=== PATIENT | female | born 1945 | race Two or more races ===

== ENCOUNTER 2018-08-17 08:49 | Inpatient (IN) | payer MEDICARE, BC ==
[~2018-08-17] VITALS: Ht 167.6 cm; Wt 59.9 kg
[2018-08-26] MEDS ORDERED: CITALOPRAM HBR20 M1 ORAL (12:03)
[2018-08-26] MEDS ORDERED: ATENOLOL50 MG ORAL (12:03)
[2018-08-26] MEDS ORDERED: MULTIVITAMINS1 EAC2 ORAL (12:03)
[2018-08-26] MEDS ORDERED: CALCIUM500 M3 PO (12:03)
[2018-08-26] MEDS ORDERED: ASPIR 8181 MG ORAL (12:03)
[2018-08-26] MEDS ORDERED: BIOTIN1 M1 PO (12:03)
[2018-08-26] MEDS ORDERED: VITAMIN C500 M7 PO (12:03)
[2018-08-26] MEDS ORDERED: LISINOPRIL10 MG ORAL (12:03)
[2018-08-26] MEDS ORDERED: VITAMIN E400 UNI8 PO (12:03)
[2018-08-26] MEDS ORDERED: COQ-1030 M1 PO (12:03)
[2018-08-26] MEDS ORDERED: FISH OIL CAP1000 MG ORAL (12:03)
[2018-08-26] MEDS ORDERED: VITAMIN D400 INTLU ORAL (12:03)
[2018-08-26] MEDS ORDERED: LEXAPRO10 MG ORAL (12:03)
[2018-08-26] MEDS ORDERED: COSAMIN DS TAB1 EAC1 PO (12:03)
[2018-08-27] VITALS (12 sets, daily range): BP systolic 98–135; BP diastolic 65–87
[2018-08-27] MEDS ORDERED: NeoSporin Gu Irrig 1ml Amp IRRIG ONE ×2 (07:35→12:34)
[2018-08-27] MEDS ORDERED: Bacitracin 50000 Units Vial ONE ×2 (07:35→12:34)
[2018-08-27] MEDS ORDERED: Bupivacaine 0.5% Inj 30 ml vial INJ ONE (07:42)
[2018-08-27] MEDS ORDERED: fentaNYL 100 mcg/2 mL IV ONE ×2 (08:09→09:12)
[2018-08-27] MEDS ORDERED: Midazolam 2mg/2ml Inj ONE (08:09)
[2018-08-27] MEDS ORDERED: Propofol 200mg/20ml IV ONE (09:12)
[2018-08-27] MEDS ORDERED: Sterile Water Irrig 1000ml IRRIG ONE (09:12)
[2018-08-27] MEDS ORDERED: NS Irrig 1000ml ONE (09:12)
[2018-08-27] MEDS ORDERED: LR 1000ml ONE (09:12)
[2018-08-27] MEDS ORDERED: NS Irrig 2000ml IRRIG ONE (09:12)
--- NOTE | 2018-08-27 09:16 | Pre-Procedure Note/Attestation ---
Pre-Procedure Note/Attestation Complete Prior to Procedure Planned Procedure: right Procedure Narrative: Right Total Knee Arthroplasty Indications for Procedure Pre-Operative Diagnosis: End stage osteoarthritis with deformity and contraction of the right knee Attestation I attest that I discussed the nature of the procedure; its benefits; risks and complications; and alternatives (and the risks and benefits of such alternatives ), prior to the procedure, with the patient (or the patient's legal operations representative). I attest that, if there was a reasonable possibility of needing a blood transfusion, the patient (or the patient's legal operations representative) was given the [facility] standardized written summary, pursuant to the [employer] [place] Blood Safety Act ([place] Health and Safety Code # 1645, as amended). I attest that I re-evaluated the patient just prior to the surgery and that there has been no change in the patient's H&P, except as documented below: Tera Wilkins MD Aug 27, 2018 09:16
[2018-08-27] MEDS ORDERED: LR 1000ml 1,000 ML IVLG SCH (10:24)
--- NOTE | 2018-08-27 10:24 | Anethesia Preoperative Eval ---
Anesthesia Pre-op PMH/ROS General Date of Evaluation: Aug 27, 2018 Time of Evaluation: 08:20 Anesthesiologist: Caroline ASA Score: ASA 2 Mallampati Score Class I : Soft palate, uvula, fauces, pillars visible Class II: Soft palate, uvula, fauces visible Class III: Soft palate, base of uvula visible Class IV: Only hard plate visible Mallampati Classification: Class II Surgeon: Franky Diagnosis: R knee DJD Surgical Procedure: R knee TKA Anesthesia History: none Social History: smoking - h/o Family History: no anesthesia problems Allergies: Coded Allergies: CODEINE (Verified Allergy, Severe, 08/26/18) can not move and talk MORPHINE (Verified Allergy, Severe, 08/27/18) HALLUCINATIONS PENICILLINS (Verified Allergy, Severe, 08/26/18) rash Medications: see eMAR Patient NPO?: Yes NPO Date: Aug 26, 2018 NPO Time: 2029 Past Medical History Cardiovascular: Reports: HTN - stable; Denies: CAD, FL, valve dz, arrhythmia, other Pulmonary: Denies: asthma, COPD, DUANE, other Gastrointestinal/Genitourinary: Reports: GERD - mild; Denies: CRI, ESRD, other Neurologic/Psychiatric: Reports: depression/anxiety; Denies: dementia, CVA, TIA, other Endocrine: Denies: DM, hypothyroidism, steroids, other HEENT: Reports: cataract (L), cataract (R) - s/p bilateral Sx; Denies: glaucoma, JAMUL (L), JAMUL (R), other Hematology/Immune: Denies: anemia, DVT, bleeding disorder, other Musculoskeletal/Integumentary: Reports: DJD; Denies: OA, RA, DDD, edema, other PMH Narrative: as above PSxH Narrative: Bilateral cataracts, hysterectomy Anesthesia Pre-op Phys. Exam Physician Exam Last Vital Signs Date Time Temp Pulse Resp B/P (MAP) Pulse Ox O2 Delivery O2 Flow Rate FiO2 08/27/18 08:57 Room Air 08/27/18 08:56 97.2 55 18 126/87 (100) 98 Constitutional: NAD Neurologic: CN 2-12 intact Cardiovascular: RRR, no M/R/G Respiratory: CTA Gastrointestinal: S/NT/ND Airway Exam Mallampati Score: Class II MO: limited Neck: stiff ROM: limited Teeth: intact Dentures: no upper, no lower Anesthesia Pre-op A/P Labs see chart Studies Pre-op Studies: EKG - NSR Risk Assessment & Plan Assessment: ASA 2 Plan: SAB vs GA R femoral nerve block for post operative pain control Status Change Before Surgery: No Pre-Antibiotics Drug: Ancef 2gr Given Within 1 Hr of Incision: Yes Time Given: 09:40 David Velazquez MD Aug 27, 2018 10:24
[2018-08-27] MEDS ORDERED: DiphenhydrAMINE 50mg/ml Inj IVP PRN (10:30)
[2018-08-27] MEDS ORDERED: Midazolam 2mg/2ml Inj IVP PRN (10:30)
[2018-08-27] MEDS ORDERED: fentaNYL 100 mcg/2 mL IV PRN (10:30)
[2018-08-27] MEDS ORDERED: Ketorolac 30mg Inj IV PRN ×2 (10:30→18:30)
[2018-08-27] MEDS ORDERED: ePHEDrine 50mg/ml Inj ONE (11:31)
[2018-08-27] MEDS ORDERED: Sodium Chloride 10ml vial INJ ONE (11:31)
--- NOTE | 2018-08-27 13:52 | Immediate Post-Op Evaluation ---
Immediate Post-Op Evalulation Immediate Post-Op Evalulation Procedure: R total knee arthroplasty Date of Evaluation: Aug 27, 2018 Time of Evaluation: 13:51 IV Fluids: 1800 Blood Products: none Estimated Blood Loss: 200 Urinary Output: 500 Blood Pressure Systolic: 105 Blood Pressure Diastolic: 56 Pulse Rate: 64 Respiratory Rate: 20 O2 Sat by Pulse Oximetry: 99 Temperature (Fahrenheit): 97.6 Pain Score (1-10): 2 Nausea: No Vomiting: No Complications NONE Patient Status: awake, patent, none Hydration Status: adequate David Velazquez MD Aug 27, 2018 13:52
[2018-08-27] MEDS ORDERED: Milk of Magnesia 30ml Ud ORAL PRN (14:00)
--- NOTE | 2018-08-27 14:00 | Operative Note - PDOC ---
Operative Note Operative Note Date of Operation/Procedure: Aug 27, 2018 Chief Complaint: Pain and limited ADLs due to pain and deformity Pre-op Diagnosis: End stage osteoarthritis with deformity and contraction of the right knee Procedure: Right total knee arthroplasty Post-op Diagnosis: same Post-op Diagnosis: same as pre-op Surgeon: Ania Wilkins M.D. Home Hospice Aide: Ambar Lubin M.D. Anesthesiologist: Dr. Gates Anesthesia: regional Specimen: none Complications: none Condition: stable Estimated Blood Loss: minimal Drains: hemovac Tourniquet time: 120 Implant(s) used?: Yes - flores and Nephew - 6 Femur, 3 tibia, 32 patella and 9mm deep dish insert Indications for Procedure end stage right knee OA refractory to conservative tx Description of Procedure see detailed dictation of total knee replacement/arthroplasty Tera Wilkins MD Aug 27, 2018 14:00
[2018-08-27] MEDS ORDERED: Rate Change PCA 1 Each MISC PRN (14:45)
[2018-08-27] MEDS ORDERED: PCA HYDROmorphone 30mg/30ml Syr IV PRN (14:45)
--- NOTE | 2018-08-27 14:46 | Orthopedic Progress Note ---
Orthopedic - Progress Note Subjective Symptoms: c/o post-op knee pain Additional Comments pain controlled with meds and block Objective Last 24 Hour Vital Signs Date Time Temp Pulse Resp B/P (MAP) Pulse Ox O2 Delivery O2 Flow Rate FiO2 08/27/18 14:25 54 15 119/73 98 Nasal Cannula 3 08/27/18 14:10 53 19 113/67 98 Nasal Cannula 3 08/27/18 14:00 55 17 106/67 100 Nasal Cannula 3 08/27/18 13:52 64 20 99 08/27/18 13:48 56 13 108/69 100 Nasal Cannula 3 08/27/18 13:43 53 17 98/67 100 Simple Mask 6 08/27/18 13:38 97.2 56 22 105/65 100 Simple Mask 6 08/27/18 08:57 Room Air 08/27/18 08:56 97.2 55 18 126/87 (100) 98 Drain approx 75cc Wound: clean, dry, intact Drains: hemovac Neuro Status: stable Vascular Status: normal Additional Comments gross motor of right leg intact and parasthesia present second to nerve block and spinal Assessment Post-op Diagnosis same Procedure Performed Right total knee arthroplasty Plan Plan: PT, pain management, continue drain Additional Comments pending ice machine and cpm Tera Wilkins MD Aug 27, 2018 14:46
--- NOTE | 2018-08-27 15:06 | Diagnostic Imaging Report ---
Indication: Pain 2 views of the right knee were obtained. Findings: A cemented total knee as was demonstrated. Soft tissue swelling and air indicative of recent surgery noted. Alignment and position of the prosthetic is unremarkable. There is a drain noted. IMPRESSION: Status post right total knee replacement. No complications identified
[2018-08-27] MEDS ORDERED: PCA Education Pamphlet MISC ONE (16:00)
[2018-08-27] MEDS: HYDROcodone/Acetamin 7.5/325 tab ORAL PRN (16:17)
[2018-08-27] MEDS: D5 1/2NS w/KCl 20mEq 1,000 ML IV SCH (16:17)
[2018-08-27] MEDS: ceFAZolin sod 1 GM in D5W 55 ML IV SCH (18:00)
[2018-08-27] MEDS: Docusate 100mg cap ORAL SCH (18:00)
--- NOTE | 2018-08-27 18:16 | 48 Hour Post Anesthesia Eval ---
Post Anesthesia Evaluation Procedure: R total knee arthroplasty Date of Evaluation: Aug 27, 2018 Time of Evaluation: 18:16 Blood Pressure Systolic: 135 0: 70 Pulse Rate: 65 Respiratory Rate: 14 Temperature (Fahrenheit): 97.8 O2 Sat by Pulse Oximetry: 98 Airway: patent Nausea: No Vomiting: No Pain Intensity: 6 Hydration Status: adequate Cardiopulmonary Status: stable Mental Status/LOC: patient returned to baseline Follow-up Care/Observations: na Post-Anesthesia Complications: none Follow-up care needed: N/A Priscilla Galicia CRNA Aug 27, 2018 18:16
[2018-08-27] MEDS: PCA shift volume MISC SCH (19:00)
[2018-08-27] MEDS ORDERED: oxyCONTIN 20mg tab ORAL SCH (21:00)
[2018-08-28] VITALS (8 sets, daily range): BP systolic 88–115; BP diastolic 57–75
[2018-08-28] MEDS: ceFAZolin sod 1 GM in D5W 55 ML IV SCH (01:36)
[2018-08-28] MEDS: D5 1/2NS w/KCl 20mEq 1,000 ML IV SCH (04:35)
[2018-08-28 06:45] LABS: BASOPHILS % (AUTO) 0.9 % (0.0-2.0); EOSINOPHILS % (AUTO) 1.4 % (0.0-3.0); HEMATOCRIT 28.3 % (37.0-47.0); HEMOGLOBIN 9.5 G/DL (12.0-16.0); LYMPHOCYTES % (AUTO) 13.7 % (20.0-45.0); MEAN CORPUSCULAR VOLUME 98 FL (80-99); MONOCYTES % (AUTO) 11.4 % (1.0-10.0); NEUTROPHILS % (AUTO) 72.6 % (45.0-75.0); PLATELET COUNT 148 K/UL (150-450); RED BLOOD COUNT 2.88 M/UL (4.20-5.40); RED CELL DISTRIBUTION WIDTH 11.8 % (11.6-14.8); WHITE BLOOD COUNT 6.3 K/UL (4.8-10.8)
[2018-08-28 06:52] LABS: ANION GAP 4 mmol/L (5-15); BLOOD UREA NITROGEN 9 mg/dL (7-18); CALCIUM 8.3 MG/DL (8.5-10.1); CARBON DIOXIDE 29 MMOL/L (21-32); CHLORIDE 102 MMOL/L (98-107); CREATININE 0.7 MG/DL (0.55-1.30); POTASSIUM 4.5 MMOL/L (3.5-5.1); SODIUM 135 MMOL/L (136-145)
[2018-08-28] MEDS: PCA shift volume MISC SCH ×2 (07:00→19:21)
[2018-08-28] MEDS ORDERED: Atenolol 25mg tab ORAL SCH (09:00)
[2018-08-28] MEDS: Docusate 100mg cap ORAL SCH ×3 (09:39→18:02)
[2018-08-28] MEDS: celeBREX 200mg Cap **SURGERY PATIENTS ONLY ORAL SCH (09:39)
[2018-08-28] MEDS: Enoxaparin 40mg Inj SUBQ SCH (10:13)
--- NOTE | 2018-08-28 15:20 | Orthopedic Progress Note ---
Orthopedic - Progress Note Subjective Symptoms: c/o post-op knee pain, improved Additional Comments Patient unable to participate in PT due to lightheaded and low BP. Pt had Atenolol this am and dilaudid for pain...hypotension appears multifactorial She denies dizziness, nausea, chest pain, sob, etc Objective Last 24 Hour Vital Signs Date Time Temp Pulse Resp B/P (MAP) Pulse Ox O2 Delivery O2 Flow Rate FiO2 08/28/18 12:00 18 08/28/18 11:00 99.0 78 109/66 (80) 08/28/18 09:40 75 111/71 08/28/18 08:00 18 08/28/18 08:00 98.2 75 18 111/71 (84) 98 08/28/18 05:05 97.9 08/28/18 04:30 97.9 72 17 112/72 (85) 94 08/28/18 04:30 17 08/28/18 00:27 15 08/28/18 00:19 97.9 71 21 115/75 (88) 94 08/27/18 20:32 15 08/27/18 19:54 98.1 66 20 117/77 (90) 100 08/27/18 18:17 65 08/27/18 18:16 85 14 98 08/27/18 16:00 97.8 65 20 135/84 (101) 100 Intake and Output 08/27/18 08/28/18 19:00 07:00 Intake Total 2315 ml 825 ml Output Total 1470 ml 1870 ml Balance 845 ml -1045 ml Intake Oral 240 ml IV Total 2075 ml 825 ml Output Urine Total 750 ml 1550 ml Drainage Total 520 ml 320 ml Estimated Blood Loss 200 ml # Voids 1 Laboratory Tests Test 08/28/18 06:00 White Blood Count 6.3 K/UL (4.8-10.8) Red Blood Count 2.88 M/UL (4.20-5.40) L Hemoglobin 9.5 G/DL (12.0-16.0) L Hematocrit 28.3 % (37.0-47.0) L Mean Corpuscular Volume 98 FL (80-99) Mean Corpuscular Hemoglobin 33.1 PG (27.0-31.0) H Mean Corpuscular Hemoglobin Concent 33.6 G/DL (32.0-36.0) Red Cell Distribution Width 11.8 % (11.6-14.8) Platelet Count 148 K/UL (150-450) L Mean Platelet Volume 6.4 FL (6.5-10.1) L Neutrophils (%) (Auto) 72.6 % (45.0-75.0) Lymphocytes (%) (Auto) 13.7 % (20.0-45.0) L Monocytes (%) (Auto) 11.4 % (1.0-10.0) H Eosinophils (%) (Auto) 1.4 % (0.0-3.0) Basophils (%) (Auto) 0.9 % (0.0-2.0) Prothrombin Time 10.9 SEC (9.30-11.50) Prothromb Time International Ratio 1.0 (0.9-1.1) Sodium Level 135 MMOL/L (136-145) L Potassium Level 4.5 MMOL/L (3.5-5.1) Chloride Level 102 MMOL/L (98-107) Carbon Dioxide Level 29 MMOL/L (21-32) Anion Gap 4 mmol/L (5-15) L Blood Urea Nitrogen 9 mg/dL (7-18) Creatinine 0.7 MG/DL (0.55-1.30) Estimat Glomerular Filtration Rate mL/min (>60) Glucose Level 160 MG/DL (74-106) H Calcium Level 8.3 MG/DL (8.5-10.1) L H and H 9.6 and 28 Wound: clean, dry, intact Drains: hemovac Neuro Status: stable Vascular Status: normal Assessment Post-op Diagnosis same Procedure Performed Right total knee arthroplasty Plan Plan: PT, pain management, continue drain Additional Comments BP monitoring and treatment as needed - will start with fluid bolus, etc Tera Wilkins MD Aug 28, 2018 15:20
[2018-08-28] MEDS: 1/2NS w/KCl 20mEq 1000ml 1,000 ML IV SCH ×2 (16:09→23:06)
[2018-08-28] MEDS: ALPRAZolam 0.25mg tab ORAL PRN (23:41)
[2018-08-29 00:43] VITALS: BP 95/56
[2018-08-29] MEDS: ALPRAZolam 0.25mg tab ORAL PRN (02:12)
[2018-08-29 04:00] VITALS: BP 93/57
[2018-08-29 05:05] LABS: BASOPHILS % (AUTO) 0.9 % (0.0-2.0); EOSINOPHILS % (AUTO) 4.1 % (0.0-3.0); HEMATOCRIT 24.1 % (37.0-47.0); HEMOGLOBIN 8.2 G/DL (12.0-16.0); LYMPHOCYTES % (AUTO) 22.4 % (20.0-45.0); MEAN CORPUSCULAR VOLUME 98 FL (80-99); MONOCYTES % (AUTO) 12.3 % (1.0-10.0); NEUTROPHILS % (AUTO) 60.4 % (45.0-75.0); PLATELET COUNT 121 K/UL (150-450); RED BLOOD COUNT 2.46 M/UL (4.20-5.40); RED CELL DISTRIBUTION WIDTH 11.7 % (11.6-14.8); WHITE BLOOD COUNT 5.1 K/UL (4.8-10.8)
[2018-08-29] MEDS: PCA shift volume MISC SCH (07:10)
[2018-08-29 08:00] VITALS: BP 116/75
[2018-08-29] MEDS: 1/2NS w/KCl 20mEq 1000ml 1,000 ML IV SCH ×2 (08:19→15:06)
[2018-08-29] MEDS: celeBREX 200mg Cap **SURGERY PATIENTS ONLY ORAL SCH (08:20)
[2018-08-29] MEDS: Docusate 100mg cap ORAL SCH ×3 (08:21→18:28)
[2018-08-29] MEDS: Enoxaparin 40mg Inj SUBQ SCH ×2 (09:00→15:08)
[2018-08-29 12:00] VITALS: BP 109/76
[2018-08-29] MEDS ORDERED: Rate Change PCA 1 Each MISC PRN (14:45)
[2018-08-29] MEDS ORDERED: Naloxone 0.4mg/ml Inj IV PRN (14:45)
[2018-08-29] MEDS ORDERED: PCA HYDROmorphone 1mg/ml 30 ML IV PRN (14:45)
[2018-08-29 16:00] VITALS: BP 110/74
--- NOTE | 2018-08-29 17:32 | Orthopedic Progress Note ---
Orthopedic - Progress Note Subjective Symptoms: c/o post-op knee pain, improved Additional Comments Pt still having symptomatic hypotension when trying to stand and ambulate....long discussion with patient and she would like to proceed with transfusion instead of waiting until tomorrow as clinically she will greatly benefit from it. ALL RBA d/w pt and questions answered. Objective Last 24 Hour Vital Signs Date Time Temp Pulse Resp B/P (MAP) Pulse Ox O2 Delivery O2 Flow Rate FiO2 08/29/18 12:00 20 08/29/18 12:00 98.9 77 20 109/76 (87) 100 08/29/18 08:00 98.3 80 20 116/75 (89) 96 08/29/18 08:00 20 08/29/18 04:00 17 08/29/18 04:00 98.9 68 17 93/57 (69) 98 08/29/18 01:59 99.3 08/29/18 00:54 100.9 08/29/18 00:43 100.9 84 17 95/56 (69) 94 08/29/18 00:00 17 08/28/18 23:35 101.0 85 18 102/65 (77) 94 08/28/18 20:00 17 08/28/18 20:00 98.9 74 17 90/58 (69) 94 08/28/18 18:00 74 88/57 (67) Intake and Output 08/28/18 08/29/18 19:00 07:00 Output Total 1520 ml 1880 ml Balance -1520 ml -1880 ml Output Urine Total 1400 ml 1800 ml Drainage Total 120 ml 80 ml Laboratory Tests Test 08/29/18 04:35 White Blood Count 5.1 K/UL (4.8-10.8) Red Blood Count 2.46 M/UL (4.20-5.40) L Hemoglobin 8.2 G/DL (12.0-16.0) L Hematocrit 24.1 % (37.0-47.0) L Mean Corpuscular Volume 98 FL (80-99) Mean Corpuscular Hemoglobin 33.2 PG (27.0-31.0) H Mean Corpuscular Hemoglobin Concent 33.8 G/DL (32.0-36.0) Red Cell Distribution Width 11.7 % (11.6-14.8) Platelet Count 121 K/UL (150-450) L Mean Platelet Volume 6.2 FL (6.5-10.1) L Neutrophils (%) (Auto) 60.4 % (45.0-75.0) Lymphocytes (%) (Auto) 22.4 % (20.0-45.0) Monocytes (%) (Auto) 12.3 % (1.0-10.0) H Eosinophils (%) (Auto) 4.1 % (0.0-3.0) H Basophils (%) (Auto) 0.9 % (0.0-2.0) Prothrombin Time 10.6 SEC (9.30-11.50) Prothromb Time International Ratio 1.0 (0.9-1.1) H&H low and pt symptomatic, thus transfusion recommended Wound: clean, dry, intact Drains: hemovac Neuro Status: normal Vascular Status: normal Assessment Post-op Diagnosis same Procedure Performed Right total knee arthroplasty Plan Plan: PT, pain management, continue drain, other Additional Comments Transfusion tonight and restart PT in am Tera Wilkins MD Aug 29, 2018 17:32
[2018-08-29] MEDS ORDERED: Hydromorphone 0.5mg/0.5ml inj IVP PRN ×2 (17:35→17:36)
[2018-08-29] MEDS ORDERED: PCA shift volume MISC SCH (19:00)
[2018-08-29 20:23] VITALS: BP 137/85
[2018-08-30] VITALS (7 sets, daily range): BP systolic 116–143; BP diastolic 71–89
[2018-08-30] MEDS ORDERED: Acetaminophen 500mg (ES) tab ORAL ONE (01:00)
[2018-08-30 07:36] LABS: BASOPHILS % (AUTO) 0.6 % (0.0-2.0); EOSINOPHILS % (AUTO) 4.7 % (0.0-3.0); HEMATOCRIT 32.3 % (37.0-47.0); HEMOGLOBIN 11.4 G/DL (12.0-16.0); LYMPHOCYTES % (AUTO) 15.1 % (20.0-45.0); MEAN CORPUSCULAR VOLUME 93 FL (80-99); MONOCYTES % (AUTO) 10.9 % (1.0-10.0); NEUTROPHILS % (AUTO) 68.7 % (45.0-75.0); PLATELET COUNT 135 K/UL (150-450); RED BLOOD COUNT 3.46 M/UL (4.20-5.40); RED CELL DISTRIBUTION WIDTH 13.6 % (11.6-14.8); WHITE BLOOD COUNT 5.2 K/UL (4.8-10.8)
[2018-08-30 07:50] LABS: INR 0.9 (0.9-1.1)
[2018-08-30] MEDS: Docusate 100mg cap ORAL SCH ×3 (08:53→17:30)
[2018-08-30] MEDS: celeBREX 200mg Cap **SURGERY PATIENTS ONLY ORAL SCH (08:53)
[2018-08-30] MEDS: 1/2NS w/KCl 20mEq 1000ml 1,000 ML IV SCH ×3 (08:53→16:00)
--- NOTE | 2018-08-30 10:50 | Orthopedic Progress Note ---
Orthopedic - Progress Note Subjective Symptoms: improved Additional Comments Pt significantly improved after transfusion, able to ambulate and no hypotension symptoms, etc. energy level increased and pain controlled Objective Last 24 Hour Vital Signs Date Time Temp Pulse Resp B/P (MAP) Pulse Ox O2 Delivery O2 Flow Rate FiO2 08/30/18 08:00 98.1 81 21 128/81 (97) 97 08/30/18 04:00 98.2 64 18 123/72 (89) 99 08/30/18 01:34 98.7 08/30/18 00:00 98.6 65 18 116/71 (86) 98 08/29/18 21:00 Room Air 08/29/18 20:23 99.0 74 20 137/85 (102) 100 08/29/18 20:18 98.5 08/29/18 16:00 97.5 70 20 110/74 (86) 100 08/29/18 16:00 20 08/29/18 12:00 20 08/29/18 12:00 98.9 77 20 109/76 (87) 100 Intake and Output 08/29/18 08/30/18 19:00 07:00 Intake Total 565 ml 575 ml Output Total 80 ml 850 ml Balance 485 ml -275 ml Intake Oral 440 ml 200 ml IV Total 125 ml 375 ml Output Urine Total 800 ml Drainage Total 80 ml 50 ml # Voids 2 Laboratory Tests Test 08/30/18 06:20 White Blood Count 5.2 K/UL (4.8-10.8) Red Blood Count 3.46 M/UL (4.20-5.40) L Hemoglobin 11.4 G/DL (12.0-16.0) #L Hematocrit 32.3 % (37.0-47.0) #L Mean Corpuscular Volume 93 FL (80-99) Mean Corpuscular Hemoglobin 32.8 PG (27.0-31.0) H Mean Corpuscular Hemoglobin Concent 35.2 G/DL (32.0-36.0) Red Cell Distribution Width 13.6 % (11.6-14.8) Platelet Count 135 K/UL (150-450) L Mean Platelet Volume 6.7 FL (6.5-10.1) Neutrophils (%) (Auto) 68.7 % (45.0-75.0) Lymphocytes (%) (Auto) 15.1 % (20.0-45.0) L Monocytes (%) (Auto) 10.9 % (1.0-10.0) H Eosinophils (%) (Auto) 4.7 % (0.0-3.0) H Basophils (%) (Auto) 0.6 % (0.0-2.0) Prothrombin Time 10.0 SEC (9.30-11.50) Prothromb Time International Ratio 0.9 (0.9-1.1) Wound: clean, dry, intact Drains: none Neuro Status: normal Vascular Status: normal Assessment Post-op Diagnosis same Procedure Performed Right total knee arthroplasty Plan Plan: PT Additional Comments If pt continues to improve, may be candidate for transfer to rehab tomorrow afternoon Tera Wilkins MD Aug 30, 2018 10:50
[2018-08-30] MEDS: Enoxaparin 30mg Inj SUBQ SCH (13:00)
[2018-08-31] MEDS: 1/2NS w/KCl 20mEq 1000ml 1,000 ML IV SCH ×2 (05:12→18:40)
--- NOTE | 2018-08-31 07:15 | Operative Note - Dictated ---
DATE OF OPERATION: 08/27/2018 NOTE: POOR AUDIO PREOPERATIVE DIAGNOSIS: End-stage arthrosis of the right knee. POSTOPERATIVE DIAGNOSES: 1. End-stage arthrosis of the right knee. 2. Severe valgus deformity with contraction of lateral capsule. PROCEDURE PERFORMED: Right total knee arthroplasty using a Gill [employer] Nephew, total knee Journey II System with a size 6 femur, size 3 tibia, and 32 mm poly patella, and 9 mm tibial insert, all components were cemented. Lateral release and complex multi-layered wound closure measuring 23 cm and implant of non- biodegradeable janny drain. SURGEON: Tera Wilkins M.D. FIRST ROPE TIER: Howard Lubin M.D. ANESTHESIOLOGIST: Spinal with obturator block by David Velazquez M.D. ESTIMATED BLOOD LOSS: Less than 50 mL. DRAINS: Hemovac x1. COMPLICATIONS: None. INDICATION FOR PROCEDURE: The patient is a 73-year-old female who presented with 15 days of right knee pain secondary to valgus deformity and severe arthritic right knee. She failed conservative treatments including injections, physical therapy, bracing etc., that is why it was felt the patient would benefit from knee replacement surgery. The risks, benefits and alternatives to surgery were discussed with the patient. Risks including, but not limited to infection, nerve damage, especially due to valgus deformity, blood clots, bleeding, continued pain, failure of implants or surgery, revision surgery required if blood clots all extensively reviewed. The patient understood the risks and wished to proceed. OPERATIVE FINDINGS: Examination under anesthesia demonstrated the patient has approximately a 30 degree valgus deformity with knee extension and compression and approximately 20 degrees when supine at rest, which is fairly correctible to 7-10 degrees. The patient has full range of motion with extension to 0 and flexion to 120 with mild lateral patella tracking along the trochlear groove. At all times, the neurovascular structures were protected, paying extra attention to the peroneal nerve and tight lateral side. DESCRIPTION OF PROCEDURE: The patient was identified by myself in the preoperative area. The right lower extremity was marked as the correct operative site. The patient was then taken to the operating room and placed in supine position. After adequate anesthesia, the right lower extremity was prepped and draped in the usual sterile fashion manner. The patient received 2 g of Ancef IV prior to skin incision. Time-out was performed confirming the right lower extremity. A sterile tourniquet was used and the leg exsanguinated and cuff set to 275 mmHg. A paramedian skin incision was made and taken through the subcutaneous tissue and hemostasis maintained. Next, a paramedian arthrotomy was then performed. Next, the patella was then everted, measured and cut to the appropriate thickness. It was noted that a 32 mm poly patella provided best fit. Next, attention was turned to the femur where intramedullary drill was used to place the guide katty. The guide katty was inserted and the distal femoral cutting jig placed and pinned into correct positioning. Once the distal femoral cuts were made, the femoral sizing jig was used and it was noted that the size 6 was the best fit after setting to approximately 5 degrees. Anterior and posterior and chamfer cuts were then made. Size 6 trial was inserted and measured to be a perfect fit. Next, attention was then turned to the tibia side. The ACL and PCL were completely resected as well as the medial and lateral meniscus. Next, the tibial cutting guide was then inserted and pinned after measuring to remove approximately only 1 to 2 mm off the more diseased lateral side, and 7-9 mm on the medial side. Once the tibial resection was then performed, a spacer block was used to check the gaps, and it was noted that the posterior lateral corner was tight, and thus a small release was performed. The gaps were once again measured and noted to be symmetric. Next, the tibia was sized and trialed, noting a size 3 was the best fit and no overhang. ROM and stability were then tested and it was noted that the knee came to full extension, resting in approximately 5 deg of valgus, and was stable throughout the full arc of motion to 120 degrees with central patellar tracking throughout. There was no instability or asymmetry noted. After trialing and checking stability, etc., all the components were removed and the knee thoroughly irrigated and dried. Next cement was placed and finger packed into the tibial surface and the final tibial insert was fully seated under direct vision. All excess cement was removed. Similar preparation was carried out for the femur and patella. The final 9mm tibial insert was inserted and fully seated under direct vision. ROM and stability were once again tested and noted that there was full motion without any instability or asymmetry. Next the tourniquet was released and hemostasis achieved. A medium hemovac was placed and a multilayered wound closure was performed beginning with the quad tendon and finishing with the subcuticular layer. Steri-strips and dry sterile dressings were placed. The patient was then awoken from the anesthesia and taken to PACU. There were no complications. Tera Wilkins M.D. DR: Dave JOB#: [id number] CC: [id number]
[2018-08-31 08:08] LABS: INR 0.9 (0.9-1.1)
[2018-08-31 09:00] VITALS: BP 142/87
[2018-08-31] MEDS: Enoxaparin 30mg Inj SUBQ SCH (09:45)
[2018-08-31] MEDS: Docusate 100mg cap ORAL SCH ×3 (09:46→17:59)
[2018-08-31] MEDS: celeBREX 200mg Cap **SURGERY PATIENTS ONLY ORAL SCH (09:46)
[2018-08-31 12:00] VITALS: BP 131/89
[2018-08-31] MEDS ORDERED: NS 275ml ONE (14:13)
--- NOTE | 2018-08-31 14:46 | Orthopedic Progress Note ---
Orthopedic - Progress Note Subjective Symptoms: improved Additional Comments Pt slowing improving, no LOWERY or dizziness...some confusion still at times, but overall less, pain well controlled. Objective Last 24 Hour Vital Signs Date Time Temp Pulse Resp B/P (MAP) Pulse Ox O2 Delivery O2 Flow Rate FiO2 08/31/18 09:00 98.5 77 20 142/87 (105) 96 08/30/18 23:54 98.2 69 16 135/88 (104) 96 08/30/18 21:00 Room Air 08/30/18 20:43 98.3 81 16 136/83 (100) 97 08/30/18 16:00 97.8 65 20 143/89 (107) 96 Intake and Output 08/30/18 08/31/18 18:59 06:59 Intake Total 480 ml 555 ml Output Total 480 ml Balance 0 ml 555 ml Intake Oral 480 ml 480 ml IV Total 75 ml Output Urine Total 480 ml # Voids 2 5 Laboratory Tests Test 08/31/18 06:55 Prothrombin Time 10.0 SEC (9.30-11.50) Prothromb Time International Ratio 0.9 (0.9-1.1) Wound: clean, dry, intact Drains: none Neuro Status: normal Vascular Status: normal Additional Comments Pt progressing well, anticipate transfer to Rehab tomorrow Assessment Post-op Diagnosis same Procedure Performed Right total knee arthroplasty Plan Plan: discharge plan Additional Comments Plan to transfer to rehab tomorrow Tera Wilkins MD Aug 31, 2018 14:46
--- NOTE | 2018-08-31 14:51 | Discharge Summary ---
Discharge Summary Hospital Course Date of Admission Aug 27, 2018 at 08:17 Date of Discharge Sep 01, 2018 Admitting Diagnosis End stage arthrosis of right knee with severe valgus deformity Reason for Hospitalization: surgery HPI Danni Ruiz is a 73 year old female who was admitted on Aug 27, 2018 at 08: 17 for End Stage Osteoarthritis Procedures Patient underwent a right total knee arthroplasty on day of admission 08-27-18 Hospital Course Pt tolerated the procedure well, she did develop some symptomatic hypotension and it was felt she would benefit from blood transfusion. She was given 2u PRBCs on POD3 and tolerated it well. After the tranfusion the patient was able to fully participate in PT and ambulate, etc. Overall there were no complications and the patient's pain is well controlled on PO pain meds. Discharge Condition Upon Discharge: stable Discharge Disposition Patient was discharged to [facility] Discharge Diagnoses: (1) s/p Right TKR for end stage OA Tera Wilkins MD Aug 31, 2018 14:51
[2018-08-31] MEDS ORDERED: ALPRAZOLAM0.25 MG ORAL (14:57)
[2018-08-31] MEDS ORDERED: HYDROcodone/Acetamin 7.5/325 ORAL (14:57)
[2018-08-31] MEDS ORDERED: DOK100 M1 ORAL (14:57)
[2018-08-31] MEDS ORDERED: LOVENOX10 MG SUBQ (14:57)
--- NOTE | 2018-08-31 15:02 | Discharge Instructions ---
Discharge Instructions Discharge Instructions Services at Discharge: other Diet: regular Activity: ambulate w/ assist only, okay to shower Pneumonia Vaccine: pt rcvd vaccine prior to this visit Influenza Vaccine (Jul to Dec): pt rcvd vaccine prior to this visit Follow Up Orders Pt to follow up in office in 2 weeks Leave dressing, do not change unless it gets wet underneath. Dressing may be removed in 8-9 days For Surgical Patients Dressing Care: other May shower: Yes Contact your physician for: bleeding, pain, tenderness, redness, swelling For Congestive Heart Failure Reminder Report to your physician any weight gain of 5 pounds or more in one week. Tera Wilkins MD Aug 31, 2018 15:02
[2018-08-31 16:00] VITALS: BP 124/89
[2018-08-31 20:21] VITALS: BP 143/86
[2018-09-01 00:17] VITALS: BP 109/89
[2018-09-01 04:00] VITALS: BP 118/84
[2018-09-01] MEDS: HYDROcodone/Acetamin 7.5/325 tab ORAL PRN ×2 (05:29→20:59)
[2018-09-01] MEDS: 1/2NS w/KCl 20mEq 1000ml 1,000 ML IV SCH ×2 (08:08→21:02)
[2018-09-01 08:11] VITALS: BP 133/86
[2018-09-01] MEDS: Docusate 100mg cap ORAL SCH ×3 (08:32→17:18)
[2018-09-01] MEDS: celeBREX 200mg Cap **SURGERY PATIENTS ONLY ORAL SCH (08:32)
[2018-09-01] MEDS: Enoxaparin 30mg Inj SUBQ SCH ×2 (08:34→12:52)
[2018-09-01] MEDS ORDERED: XANAX0.25 MG ORAL (10:30)
[2018-09-01] MEDS ORDERED: COLACE100 MG ORAL (10:34)
[2018-09-01] MEDS ORDERED: LOVENOX10 M4 SUBQ (10:35)
[2018-09-01] MEDS ORDERED: NORCO 7.5/3251 EA ORAL (10:37)
[2018-09-01 12:00] VITALS: BP 113/82
[2018-09-01 16:00] VITALS: BP 120/85
[2018-09-01 20:59] VITALS: BP 140/89
== END 2018-09-01 22:09 | DRG 470 ==
LOC: SDSOVERFLO 08-27 08:17 → 3E 08-27 15:20
PROC: 0SRC0J9 Replacement of Right Knee Joint with Synthetic Substitute, Cemented, Open Approach (ICD-10-PCS; principal; 2018-08-27 10:15)
DX: M17.11 Unilateral primary osteoarthritis, right knee (principal); I10 Essential (primary) hypertension; M21.061 Valgus deformity, not elsewhere classified, right knee; I95.89 Other hypotension
CPT/HCPCS: 36415; 80048; 85025; 85610; 86850; 86900; 86901; 86920; 87081; 94003; 94150; J2250; J2405